=== PATIENT | female | born 1940 | race Caucasian/White ===

== ENCOUNTER 2020-05-15 14:00 | Inpatient (IN) | payer MEDICARE ==
[2020-05-15] MEDS ORDERED: SODIUM CHLORIDE 0.9% 1,000 ML IV STA (14:37)
--- NOTE | 2020-05-15 14:41 | ED ---
General Adult HPI - General Chief complaint: Shortness of Breath Stated complaint: high blood pressure Time Seen by Provider: 05/15/20 14:18 Source: patient, RN notes reviewed Mode of arrival: ambulatory Limitations: no limitations - History of Present Illness Initial comments: Patient is a pleasant 80-year-old female presenting to the emergency Department with complaints of high blood pressure. Patient states her blood pressure has been running high for the past few days, as high as 150 or 160 over mid 90s. Patient states otherwise she is feeling mostly well. No chest discomfort. No leg pain or leg swelling. Patient states at times when she exerts herself she gets fatigued. Patient states she may get a tiny bit short of breath however attributes that to her weight. Patient states her heart rate has also been running a little bit high at home, up to 100. No cough or fever. No abdominal pain or dysuria. - Related Data Home Medications Medication Instructions Recorded Confirmed Aspirin EC [Ecotrin Low Dose] 81 mg PO DAILY 05/15/20 05/15/20 Citalopram Hydrobromide 10 mg PO DAILY 05/15/20 05/15/20 [Citalopram HBr] Cyanocobalamin (Vitamin B-12) 1,000 mcg PO DAILY 05/15/20 05/15/20 [Vitamin B-12] Multivitamins, Thera [Multivitamin 1 tab PO DAILY 05/15/20 05/15/20 (formulary)] Omeprazole Magnesium [PriLOSEC OTC] 20 mg PO DAILY 05/15/20 05/15/20 Simvastatin [Zocor] 20 mg PO HS 05/15/20 05/15/20 amLODIPine [Norvasc] 2.5 mg PO DAILY 05/15/20 05/15/20 predniSONE 5 mg PO DIRECTED 05/15/20 05/15/20 traZODone HCL 50 mg PO HS 05/15/20 05/15/20 Allergies Allergy/AdvReac Type Severity Reaction Status Date / Time bacitracin Allergy Rash/Hives Verified 05/15/20 15:58 [From Neosporin ([id number])] lisinopril Allergy Unknown Verified 05/15/20 15:58 neomycin Allergy Rash/Hives Verified 05/15/20 15:58 [From Neosporin ([id number])] Penicillins Allergy Unknown Verified 05/15/20 15:58 polymyxin B Allergy Rash/Hives Verified 05/15/20 15:58 [From Neosporin ([id number])] adhesive AdvReac Itching Verified 05/15/20 15:58 Review of Systems ROS Statement: Those systems with pertinent positive or pertinent negative responses have been documented in the HPI. ROS Other: All systems not noted in ROS Statement are negative. Constitutional: Denies: fever, chills Eyes: Denies: eye pain ENT: Denies: ear pain Respiratory: Reports: as per HPI. Denies: cough Cardiovascular: Denies: chest pain Endocrine: Reports: fatigue Gastrointestinal: Denies: abdominal pain Genitourinary: Denies: dysuria Musculoskeletal: Denies: back pain Skin: Denies: rash Neurological: Denies: weakness Past Medical History Past Medical History: GERD/Reflux, Hyperlipidemia, Hypertension Additional Past Medical History / Comment(s): diverticultis History of Any Multi-Drug Resistant Organisms: None Reported Past Surgical History: Bowel Resection, Orthopedic Surgery Additional Past Surgical History / Comment(s): lt foot bunion Past Psychological History: Anxiety Smoking Status: Never smoker Past Drug Use History: None Reported General Exam Limitations: no limitations General appearance: alert, in no apparent distress Head exam: Present: normocephalic Eye exam: Present: normal appearance Neck exam: Present: normal inspection. Absent: tenderness, meningismus Respiratory exam: Present: normal lung sounds bilaterally Cardiovascular Exam: Present: tachycardia GI/Abdominal exam: Present: soft. Absent: tenderness Extremities exam: Present: normal inspection. Absent: pedal edema, calf tenderness Neurological exam: Present: alert Psychiatric exam: Present: normal affect, normal mood Skin exam: Present: normal color Course Vital Signs 05/15/20 05/15/20 05/15/20 14:09 15:19 15:30 Temperature 100.0 F H Pulse Rate 117 H 102 H Respiratory 22 18 Rate Blood Pressure 142/80 124/80 122/82 O2 Sat by Pulse 95 95 95 Oximetry 05/15/20 05/15/20 16:00 16:39 Temperature 98.3 F Pulse Rate 92 Respiratory 17 Rate Blood Pressure 133/79 O2 Sat by Pulse 94 L Oximetry EKG Findings - EKG Comments: EKG Findings:: Normal sinus rhythm 97. MA 154. QRS 80. QT 342. QTC 434. Normal axis. Normal QRS. No acute ST change. Medical Decision Making - Medical Decision Making Patient reevaluated and updated. Patient resting comfortably in bed. Heart rate and blood pressure stable. Case discussed with Dr. Larsen, who will admit covering for hospital call. - Lab Data Result diagrams: 05/15/20 14:42 05/15/20 14:42 Lab Results 05/15/20 05/15/20 05/15/20 Range/Units 14:42 14:42 14:42 WBC 9.0 (3.8-10.6) k/uL RBC 3.83 (3.80-5.40) m/uL Hgb 12.7 (11.4-16.0) gm/dL Hct 39.0 (34.0-46.0) % MCV 101.7 H (80.0-100.0) fL MCH 33.2 (25.0-35.0) pg MCHC 32.7 (31.0-37.0) g/dL RDW 13.7 (11.5-15.5) % Plt Count 230 (150-450) k/uL Neutrophils % 88 % Lymphocytes % 6 % Monocytes % 3 % Eosinophils % 1 % Basophils % 1 % Neutrophils # 8.0 H (1.3-7.7) k/uL Lymphocytes # 0.6 L (1.0-4.8) k/uL Monocytes # 0.3 (0-1.0) k/uL Eosinophils # 0.1 (0-0.7) k/uL Basophils # 0.1 (0-0.2) k/uL Macrocytosis Slight PT 9.4 (9.0-12.0) sec INR 0.9 (<1.2) APTT 20.5 L (22.0-30.0) sec D-Dimer 1.62 H (<0.60) mg/L FEU Sodium (137-145) mmol/L Potassium (3.5-5.1) mmol/L Chloride (98-107) mmol/L Carbon Dioxide (22-30) mmol/L Anion Gap mmol/L BUN (7-17) mg/dL Creatinine (0.52-1.04) mg/dL Est GFR (CKD-EPI)AfAm (>60 ml/min/1.73 sqM) Est GFR (CKD-EPI)NonAf (>60 ml/min/1.73 sqM) Glucose (74-99) mg/dL Plasma Lactic Acid Damian (0.7-2.0) mmol/L Calcium (8.4-10.2) mg/dL Total Bilirubin (0.2-1.3) mg/dL AST (14-36) U/L ALT (4-34) U/L Alkaline Phosphatase (38-126) U/L Troponin I (0.000-0.034) ng/mL Total Protein (6.3-8.2) g/dL Albumin (3.5-5.0) g/dL Urine Color Yellow Urine Appearance Clear (Clear) Urine pH 5.5 (5.0-8.0) Ur Specific [place] 1.012 (1.001-1.035) Urine Protein Trace H (Negative) Urine Glucose (UA) Negative (Negative) Urine Ketones Negative (Negative) Urine Blood Negative (Negative) Urine Nitrite Negative (Negative) Urine Bilirubin Negative (Negative) Urine Urobilinogen <2.0 (<2.0) mg/dL Ur Leukocyte Esterase Negative (Negative) 05/15/20 05/15/20 05/15/20 Range/Units 14:42 14:42 14:42 WBC (3.8-10.6) k/uL RBC (3.80-5.40) m/uL Hgb (11.4-16.0) gm/dL Hct (34.0-46.0) % MCV (80.0-100.0) fL MCH (25.0-35.0) pg MCHC (31.0-37.0) g/dL RDW (11.5-15.5) % Plt Count (150-450) k/uL Neutrophils % % Lymphocytes % % Monocytes % % Eosinophils % % Basophils % % Neutrophils # (1.3-7.7) k/uL Lymphocytes # (1.0-4.8) k/uL Monocytes # (0-1.0) k/uL Eosinophils # (0-0.7) k/uL Basophils # (0-0.2) k/uL Macrocytosis PT (9.0-12.0) sec INR (<1.2) APTT (22.0-30.0) sec D-Dimer (<0.60) mg/L FEU Sodium 135 L (137-145) mmol/L Potassium 4.2 (3.5-5.1) mmol/L Chloride 104 (98-107) mmol/L Carbon Dioxide 26 (22-30) mmol/L Anion Gap 5 mmol/L BUN 29 H (7-17) mg/dL Creatinine 1.09 H (0.52-1.04) mg/dL Est GFR (CKD-EPI)AfAm 56 (>60 ml/min/1.73 sqM) Est GFR (CKD-EPI)NonAf 49 (>60 ml/min/1.73 sqM) Glucose 114 H (74-99) mg/dL Plasma Lactic Acid Damian 1.0 (0.7-2.0) mmol/L Calcium 9.8 (8.4-10.2) mg/dL Total Bilirubin 0.5 (0.2-1.3) mg/dL AST 18 (14-36) U/L ALT 17 (4-34) U/L Alkaline Phosphatase 43 (38-126) U/L Troponin I <0.012 (0.000-0.034) ng/mL Total Protein 6.6 (6.3-8.2) g/dL Albumin 3.7 (3.5-5.0) g/dL Urine Color Urine Appearance (Clear) Urine pH (5.0-8.0) Ur Specific [place] (1.001-1.035) Urine Protein (Negative) Urine Glucose (UA) (Negative) Urine Ketones (Negative) Urine Blood (Negative) Urine Nitrite (Negative) Urine Bilirubin (Negative) Urine Urobilinogen (<2.0) mg/dL Ur Leukocyte Esterase (Negative) - Radiology Data Radiology results: report reviewed (As discussed with radiologist CT angios chest shows pulmonary embolism right lower lobe.), image reviewed (Chest x-ray shows no acute process) Critical Care Time Critical Care Time: Yes Total Critical Care Time: 33 Disposition Clinical Impression: Pulmonary embolism Disposition: ADMITTED IP TO THIS [facility] Condition: Serious Is patient prescribed a controlled substance at d/c from ED?: No Referrals: Nonstaff,Physician [Primary Care Provider] - 1-2 days Decision Time: 16:52
[2020-05-15] MEDS: ACETAMINOPHEN TAB 500 MG TAB PO STA ×2 (14:49→15:09)
[2020-05-15 15:05] LABS: Basophils # (A) 0.1 k/uL (0-0.2); Basophils % (A) 1 %; Eosinophils # (A) 0.1 k/uL (0-0.7); Eosinophils % (A) 1 %; HGB 12.7 gm/dL (11.4-16.0); Lymphocytes # (A) 0.6 k/uL (1.0-4.8); Lymphocytes % (A) 6 %; MCH 33.2 pg (25.0-35.0); MCHC 32.7 g/dL (31.0-37.0); MCV 101.7 fL (80.0-100.0); Macrocytosis Slight; Mean Platelet Volume 7.3; Monocytes # (A) 0.3 k/uL (0-1.0); Monocytes % (A) 3 %; Neutrophils % (A) 88 %; Platelet Count 230 k/uL (150-450); RBC 3.83 m/uL (3.80-5.40); RDW 13.7 % (11.5-15.5)
[2020-05-15 15:20] LABS: Albumin 3.7 g/dL (3.5-5.0); Calcium 9.8 mg/dL (8.4-10.2); Potassium 4.2 mmol/L (3.5-5.1); Total Bilirubin 0.5 mg/dL (0.2-1.3); Total Protein 6.6 g/dL (6.3-8.2)
--- NOTE | 2020-05-15 15:20 | XR ---
EXAMINATION TYPE: XR chest 2V DATE OF EXAM: 05/15/2020 CLINICAL HISTORY: Fever TECHNIQUE: Frontal and lateral views of the chest are obtained. COMPARISON: None FINDINGS: The cardiomediastinal silhouette is within normal limits for size. Pulmonary vasculature i s normal. There is linear atelectasis and/or scarring of the right lower lobe. There is no focal air space opacity, pleural effusion, or pneumothorax seen. Degenerative changes of the spine.. IMPRESSION: No acute cardiopulmonary process.
[2020-05-15 15:28] LABS: INR 0.9 (<1.2)
[2020-05-15 15:29] LABS: Prothrombin Time 9.4 sec (9.0-12.0)
[2020-05-15 15:34] LABS: D-Dimer 1.62 mg/L FEU (<0.60); Partial Thromboplastin Time 20.5 sec (22.0-30.0)
[2020-05-15 15:36] LABS: Appearance,Urine Clear (Clear); Bilirubin,Urine Negative (Negative); Blood,Urine Negative (Negative); Color,Urine Yellow; Glucose,Urine (UA) Negative (Negative); Ketones,Urine Negative (Negative); Leukocyte Esterase,Urine Negative (Negative); Nitrite,Urine Negative (Negative); PH, Urine 5.5 (5.0-8.0); Protein,Urine Trace (Negative); Specific Gravity,Urine 1.012 (1.001-1.035); Urobilinogen,Urine <2.0 mg/dL (<2.0)
--- NOTE | 2020-05-15 16:46 | CT ---
EXAMINATION TYPE: CT angio chest DATE OF EXAM: 05/15/2020 COMPARISON: This x-ray 05/15/2020 HISTORY: Shortness of breath and HTN. CT DLP: 275 mGycm Automated exposure control for dose reduction was used. CONTRAST: CTA scan of the thorax is performed with IV Contrast, patient injected with 60 mL of Isovue 370, pulm onary embolism protocol. MIP images are created and reviewed. 3D reconstructed images are created o n an independent workstation and reviewed. FINDINGS: LUNGS: The lungs are remarkable for interstitial changes, there are areas of interlobular septal pleu ral thickening, parenchymal bands, probable dependent atelectasis or scarring, there is mosaic perfus ion, there is no concerning parenchymal mass or nodule identified. There is no pleural effusion or pneumothorax seen. The tracheobronchial tree is patent. AORTA: No additional significant abnormality is seen. MEDIASTINUM: There is satisfactory enhancement of the pulmonary artery and its branches, there is pul monary embolism, segmental filling defect is present in the right lower lobe, axial image 86, there i s nonopacification of segmental branch right upper lobe, axial image 41 through 36e. There are no gr eater than 1 cm hilar or mediastinal lymph nodes. No pericardial effusion is seen. OTHER: Within the posterior right lobe liver towards the dome, axial image 118e there is a periphera l enhancing lesion present measuring approximately 2.7 cm, suggestion of feeding and possibly drainin g vessels. IMPRESSION: PULMONARY EMBOLISM. REPORT RELAYED TO DR. EWING TELEPHONICALLY AT THE TIME OF INTERPRETATION. INDETER MINATE LESION WITHIN THE LIVER COULD BE RELATED TO VASCULAR MALFORMATION BUT IS INDETERMINATE, ALTERN ATE IMAGING COULD BE PERFORMED FOR BETTER EVALUATION.
[2020-05-15] MEDS ORDERED: HEPARIN SODIUM,PORCINE 10,000 UNIT/ML 1 ML VIAL IV ONE (17:09)
[2020-05-15] MEDS ORDERED: HEPARIN SODIUM,PORCINE 5,000 UNIT/ML 1 ML VIAL IV PRN (17:09)
[2020-05-15] MEDS ORDERED: NALOXONE 0.4 MG/ML 1 ML VIAL IV PRN (17:09)
[2020-05-15] MEDS ORDERED: HEPARIN SOD,PORK IN 0.45% NACL 25,000 UNIT in 0.45% NACL 1 250ML.BAG IV SCH (17:15)
[2020-05-15] MEDS ORDERED: ACETAMINOPHEN TAB 325 MG TAB PO PRN (18:19)
--- NOTE | 2020-05-15 18:23 | P.HPIM ---
History of Present Illness H&P Date: 05/15/20 80-year-old female with PMH of ulcerative colitis, hypertension, dyslipidemia presents to the ED for BP check. Patient states that her blood pressure has been running high. States that her diastolic BP has been consistently in the 90s. As her PCP is in [place], she came to the ED for evaluation. On further questioning she reports shortness of breath with exertion but nothing out of the ordinary. She also noted her heart rate this morning was 129. She reports PE in the 70s that was treated with 6 months of Coumadin therapy. She denies any headache, lower extremity edema, nausea or vomiting, fever or chills, cough, chest pain, palpitations, changes in urination or bowel habits. No changes in appetite or weight. She denies any dizziness, numbness/weakness as tingling of the extremities. She does report that she drove from [place] on Wednesday. In the ED, her vital signs showed tachycardia with heart rate of 99 and O2 saturation of 93% on room air. CBC showed macrocytosis with MCV of 101.7. D- dimer was elevated at 1.62, CTA chest confirmed pulmonary embolus and indeterminate lesion within the liver. CMP showed sodium 135, BUN of 29, creatinine 1.09, glucose of 114. Troponin was less than 0.012, EKG showing normal sinus rhythm. Chest x-ray shows no active process. Patient is admitted for pulmonary embolus with pulmonology on consult. Review of Systems Pertinent positives and negatives as discussed in HPI, a complete review of systems was performed and all other systems are negative. Past Medical History Past Medical History: GERD/Reflux, Hyperlipidemia, Hypertension Additional Past Medical History / Comment(s): diverticultis History of Any Multi-Drug Resistant Organisms: None Reported Past Surgical History: Bowel Resection, Orthopedic Surgery Additional Past Surgical History / Comment(s): lt foot bunion Past Psychological History: Anxiety Smoking Status: Never smoker Past Drug Use History: None Reported Medications and Allergies Home Medications Medication Instructions Recorded Confirmed Type Aspirin EC [Ecotrin Low Dose] 81 mg PO DAILY 05/15/20 05/15/20 History Citalopram Hydrobromide 10 mg PO DAILY 05/15/20 05/15/20 History [Citalopram HBr] Cyanocobalamin (Vitamin B-12) 1,000 mcg PO DAILY 05/15/20 05/15/20 History [Vitamin B-12] Multivitamins, Thera [Multivitamin 1 tab PO DAILY 05/15/20 05/15/20 History (formulary)] Omeprazole Magnesium [PriLOSEC OTC] 20 mg PO DAILY 05/15/20 05/15/20 History Simvastatin [Zocor] 20 mg PO HS 05/15/20 05/15/20 History amLODIPine [Norvasc] 2.5 mg PO DAILY 05/15/20 05/15/20 History predniSONE 5 mg PO DIRECTED 05/15/20 05/15/20 History traZODone HCL 50 mg PO HS 05/15/20 05/15/20 History Allergies Allergy/AdvReac Type Severity Reaction Status Date / Time bacitracin Allergy Rash/Hives Verified 05/15/20 15:58 [From Neosporin ([id number])] lisinopril Allergy Unknown Verified 05/15/20 15:58 neomycin Allergy Rash/Hives Verified 05/15/20 15:58 [From Neosporin ([id number])] Penicillins Allergy Unknown Verified 05/15/20 15:58 polymyxin B Allergy Rash/Hives Verified 05/15/20 15:58 [From Neosporin ([id number])] adhesive AdvReac Itching Verified 05/15/20 15:58 Physical Exam Vitals: Vital Signs Temp Pulse Resp BP Pulse Ox 05/15/20 17:30 91 17 132/76 93 L 05/15/20 17:00 99 16 132/86 93 L 05/15/20 16:39 98.3 F 05/15/20 16:30 96 18 124/87 95 05/15/20 16:00 92 17 133/79 94 L 05/15/20 15:30 102 H 18 122/82 95 05/15/20 15:19 124/80 95 05/15/20 14:09 100.0 F H 117 H 22 142/80 95 Intake and Output 05/15/20 05/15/20 05/15/20 06:59 14:59 22:59 Other: Weight 74.843 kg General: [non toxic], [no distress], [appears at stated age] Derm: [warm], [dry] Head: [atraumatic], [normocephalic], [symmetric] Eyes: [EOMI], [no lid lag], [anicteric sclera] Mouth: [no lip lesion], [mucus membranes moist] Cardiovascular: [S1S2 reg], [tachycardic], [positive posterior tibial pulse bilateral], Lungs: [CTA bilateral], [no rhonchi, no rales] , [no accessory muscle use] Abdominal: [soft], [ nontender to palpation], [no guarding], [no appreciable organomegaly] Ext: [no gross muscle atrophy], [no edema], [no contractures] Neuro: [ CN II-XI grossly intact], [no focal neuro deficits] Psych: [Alert], [oriented], [appropriate affect] Results CBC & Chem 7: 05/15/20 14:42 05/15/20 14:42 Labs: Abnormal Lab Results - Last 24 Hours (Table) 05/15/20 05/15/20 05/15/20 Range/Units 14:42 14:42 14:42 MCV 101.7 H (80.0-100.0) fL Neutrophils # 8.0 H (1.3-7.7) k/uL Lymphocytes # 0.6 L (1.0-4.8) k/uL APTT 20.5 L (22.0-30.0) sec D-Dimer 1.62 H (<0.60) mg/L FEU Sodium (137-145) mmol/L BUN (7-17) mg/dL Creatinine (0.52-1.04) mg/dL Glucose (74-99) mg/dL Urine Protein Trace H (Negative) 05/15/20 Range/Units 14:42 MCV (80.0-100.0) fL Neutrophils # (1.3-7.7) k/uL Lymphocytes # (1.0-4.8) k/uL APTT (22.0-30.0) sec D-Dimer (<0.60) mg/L FEU Sodium 135 L (137-145) mmol/L BUN 29 H (7-17) mg/dL Creatinine 1.09 H (0.52-1.04) mg/dL Glucose 114 H (74-99) mg/dL Urine Protein (Negative) Assessment and Plan Assessment: Pulmonary embolus Acute kidney injury Macrocytosis Ulcerative colitis Hypertension Dyslipidemia As seen on CTA chest. Plans: Started on heparin drip. Transition to oral anticoagulant tomorrow. Telemetry monitoring. Follow pulmonology consultation. Follow echocardiogram to rule out right heart strain. Creatinine 1.09. Plans: Start normal saline at 75 mL per hour. Avoid nephrotoxins. Repeat BMP tomorrow morning. Plans: Continue B12 supplementation. Plans: Continue prednisone home dose. BP 132/76. Plans: Continue amlodipine. Monitor vitals, adjust medications if necessary. Plans: Continue simvastatin. DVT prophylaxis: [Heparin drip] Discussed with: [Patient] Anticipated discharge: [2-3 days] Anticipated discharge place: [Home] A total of [45] minutes was spent on the care of this complex patient more than 50% of the time was spent in counseling and care coordination. Patient names her daughter Sarah decision maker if she can't make decisions for herself. Patient would like to be no code. She would not like chest compressions or to be intubated at any time.
[2020-05-15] MEDS ORDERED: traZODone HCL 50 MG TAB PO SCH (21:00)
[2020-05-15] MEDS ORDERED: ATORVASTATIN 10 MG TAB PO SCH (21:00)
[2020-05-15] MEDS: FAMOTIDINE 20 MG TAB PO SCH (21:21)
[2020-05-15] MEDS: predniSONE 5 MG TAB PO SCH (21:22)
[2020-05-16] MEDS ORDERED: PANTOPRAZOLE 40 MG TABLET PO SCH (07:30)
[2020-05-16 08:24] LABS: INR 0.9 (<1.2); Prothrombin Time 9.6 sec (9.0-12.0)
[2020-05-16 08:43] LABS: Partial Thromboplastin Time 110.3 sec (22.0-30.0)
[2020-05-16 08:47] LABS: Basophils % (A) 0 %; Eosinophils # (A) 0.2 k/uL (0-0.7); Eosinophils % (A) 3 %; HCT 37.8 % (34.0-46.0); HGB 12.2 gm/dL (11.4-16.0); Lymphocytes # (A) 0.9 k/uL (1.0-4.8); Lymphocytes % (A) 14 %; MCH 33.7 pg (25.0-35.0); MCHC 32.4 g/dL (31.0-37.0); MCV 104.1 fL (80.0-100.0); Macrocytosis Slight; Mean Platelet Volume 7.1; Monocytes # (A) 0.2 k/uL (0-1.0); Monocytes % (A) 4 %; Neutrophils % (A) 78 %; Platelet Count 214 k/uL (150-450); RBC 3.63 m/uL (3.80-5.40); RDW 13.7 % (11.5-15.5); WBC 6.4 k/uL (3.8-10.6)
[2020-05-16] MEDS ORDERED: ASPIRIN 81 MG PO SCH (09:00)
[2020-05-16] MEDS ORDERED: amLODIPine 2.5 MG TAB PO SCH (09:00)
[2020-05-16] MEDS ORDERED: CITALOPRAM HYDROBROMIDE 10 MG TAB PO SCH (09:00)
[2020-05-16] MEDS ORDERED: CYANOCOBALAMIN 500 MCG TAB PO SCH (09:00)
[2020-05-16 09:09] LABS: Calcium 9.1 mg/dL (8.4-10.2)
[2020-05-16] MEDS: predniSONE 5 MG TAB PO SCH (09:33)
[2020-05-16] MEDS: FAMOTIDINE 20 MG TAB PO SCH (09:34)
--- NOTE | 2020-05-16 10:42 | ECHOF ---
Referral Reason:PE r/o heart strain MEASUREMENTS -------- HEIGHT: 162.6 cm WEIGHT: 77.1 kg BP: 125/69 RVIDd: 3.1 cm (< 3.3) IVSd: 1.3 cm (0.6 - 1.1) LVIDd: 3.7 cm (3.9 - 5.3) LVPWd: 1.2 cm (0.6 - 1.1) IVSs: 1.5 cm LVIDs: 2.5 cm LVPWs: 1.7 cm LA Diam: 3.2 cm (2.7 - 3.8) LAESV Index (A-L): 20.28 ml/m Ao Diam: 3.2 cm (2.0 - 3.7) AV Cusp: 1.9 cm (1.5 - 2.6) MV EXCURSION: 9.436 mm (> 18.000) MV EF SLOPE: 29 mm/s (70 - 150) EPSS: 0.7 cm MV E Gilbert: 0.67 m/s MV DecT: 163 ms MV A Gilbert: 0.82 m/s MV E/A Ratio: 0.82 RAP: 5.00 mmHg RVSP: 32.30 mmHg FINDINGS -------- Sinus rhythm. This was a technically adequate study. The left ventricular size is normal. There is mild concentric left ventricular hypertrophy. Overa ll left ventricular systolic function is normal with, an EF between 60 - 65 %. The right ventricle is normal in size. Normal LA size by volume 22+/-6 ml/m2. The right atrium is normal in size. Interatrial and interventricular septum intact. The aortic valve is trileaflet and appears structurally normal. There is trace mitral regurgitation. Trace tricuspid regurgitation present. Right ventricular systolic pressure is normal at < 35 mmHg. Trace/mild (physiologic) pulmonic regurgitation. The aortic root size is normal. Normal inferior vena cava with normal inspiratory collapse consistent with estimated right atrial pre ssure of 5 mmHg. There is no pericardial effusion. CONCLUSIONS -------- 1. The left ventricular size is normal. 2. There is mild concentric left ventricular hypertrophy. 3. Overall left ventricular systolic function is normal with, an EF between 60 - 65 %. 4. There is trace mitral regurgitation. 5. Trace tricuspid regurgitation present. 6. Trace/mild (physiologic) pulmonic regurgitation. 7. There is no pericardial effusion. ELECTROMEDICAL SERVICE ENGINEER: Luzma Spear RDCS
[2020-05-16 10:57] VITALS: TEMP 99.1
[2020-05-16] MEDS ORDERED: amLODIPine 2.5 MG TAB PO STA (12:19)
[2020-05-16] MEDS ORDERED: RIVAROXABAN 15 MG TAB PO SCH (12:30)
--- NOTE | 2020-05-16 13:25 | US ---
EXAMINATION TYPE: US venous doppler duplex LE BI DATE OF EXAM: 05/16/2020 1:13 PM COMPARISON: NONE CLINICAL HISTORY: PE. SIDE PERFORMED: Bilateral TECHNIQUE: The lower extremity deep venous system is examined utilizing real time linear array sonog mukul with graded compression, doppler sonography and color-flow sonography. VESSELS IMAGED: External Iliac Vein (EIV) Common Femoral Vein Deep Femoral Vein Greater Saphenous Vein * Femoral Vein Popliteal Vein Small Saphenous Vein * Proximal Calf Veins (* superficial vessels) Right Leg: Negative for DVT Left Leg: Negative for DVT IMPRESSION: 1. Bilateral lower extremity ultrasound negative for deep venous thrombosis.
[2020-05-16 14:31] VITALS: BP 167/89; PULSE 96; RESP 20
--- NOTE | 2020-05-16 14:38 | P.CNPUL ---
History of Present Illness Consult date: 05/16/20 Requesting physician: Lenard Ruiz Reason for consult: dyspnea Chief complaint: Dyspnea with exertion History of present illness: This is a 80-year-old female patient that resides in [place], and is currently in the area visiting her brother, has a past medical history of ulcerative colit is on maintenance dose of prednisone, hypertension, dyslipidemia, remote and vague history of pulmonary embolism in 1970s, lifetime nonsmoker who presented to the emergency department on 05/15/2020 with complaints of exertional dyspnea, and high blood pressure readings. Apparently her diastolic blood pressure was consistently in the 90s, and systolic blood pressure was 160. No chest pain. Apparently patient's heart rate was also tachycardic. Patient denied any hemoptysis, chest discomfort, no headache, no lower extremity edema, no fever, chills, no cough, no palpitations. Patient did drive from [place] on Wednesday. Chest x-ray in the emergency department showed no acute process. Labs showed elevated d-dimer 1.62, CTA chest showed pulmonary embolism segmental filling defect in the right lower lobe and non-opacification of subsegmental branch of right upper lobe. Patient was started on IV heparin, since been switched to Xarelto, she is calm and comfortable, she is on room air with pulse ox of 96%, hemodynamically stable, did have a couple of episodes of low-grade fever, T-max 100F, today's 99.1F, no cough or congestion. Review of Systems Respiratory: Reports dyspnea Past Medical History Past Medical History: GERD/Reflux, Hyperlipidemia, Hypertension Additional Past Medical History / Comment(s): diverticultis History of Any Multi-Drug Resistant Organisms: None Reported Past Surgical History: Bowel Resection, Orthopedic Surgery Additional Past Surgical History / Comment(s): lt foot bunion Past Anesthesia/Blood Transfusion Reactions: No Reported Reaction Past Psychological History: Anxiety Smoking Status: Never smoker Past Drug Use History: None Reported - Past Family History Father Family Medical History: Congestive Heart Failure (CHF), COPD Mother Additional Family Medical History / Comment(s): when she was 31 from unknown cause/illness. Sister(s) Family Medical History: Cancer, Coronary Artery Disease (CAD), CVA/TIA, Diabetes Mellitus Brother(s) Family Medical History: Congestive Heart Failure (CHF), Diabetes Mellitus Medications and Allergies Home Medications Medication Instructions Recorded Confirmed Type Aspirin EC [Ecotrin Low Dose] 81 mg PO DAILY 05/15/20 05/15/20 History Citalopram Hydrobromide 10 mg PO DAILY 05/15/20 05/15/20 History [Citalopram HBr] Cyanocobalamin (Vitamin B-12) 1,000 mcg PO DAILY 05/15/20 05/15/20 History [Vitamin B-12] Multivitamins, Thera [Multivitamin 1 tab PO DAILY 05/15/20 05/15/20 History (formulary)] Omeprazole Magnesium [PriLOSEC OTC] 20 mg PO DAILY 05/15/20 05/15/20 History Simvastatin [Zocor] 20 mg PO HS 05/15/20 05/15/20 History predniSONE 5 mg PO DIRECTED 05/15/20 05/15/20 History traZODone HCL 50 mg PO HS 05/15/20 05/15/20 History Rivaroxaban [Xarelto Starter Pack] 0 mg PO DIRECTED 30 Days #1 pack 05/16/20 Rx amLODIPine [Norvasc] 5 mg PO DAILY #30 tab 05/16/20 Rx Allergies Allergy/AdvReac Type Severity Reaction Status Date / Time bacitracin Allergy Rash/Hives Verified 05/15/20 15:58 [From Neosporin ([id number])] lisinopril Allergy Unknown Verified 05/15/20 15:58 neomycin Allergy Rash/Hives Verified 05/15/20 15:58 [From Neosporin ([id number])] Penicillins Allergy Unknown Verified 05/15/20 15:58 polymyxin B Allergy Rash/Hives Verified 05/15/20 15:58 [From Neosporin ([id number])] adhesive AdvReac Itching Verified 05/15/20 15:58 Physical Exam Vitals: Vital Signs Temp Pulse Pulse Resp BP BP Pulse Ox 05/16/20 08:00 99.1 F 94 18 138/68 96 05/16/20 04:00 92 16 125/69 93 L 05/16/20 00:00 101 H 16 134/79 95 05/15/20 20:00 98.6 F 74 16 147/76 94 L 05/15/20 18:22 98.7 F 89 16 156/91 95 05/15/20 17:30 91 17 132/76 93 L 05/15/20 17:00 99 16 132/86 93 L 05/15/20 16:39 98.3 F 05/15/20 16:30 96 18 124/87 95 05/15/20 16:00 92 17 133/79 94 L 05/15/20 15:30 102 H 18 122/82 95 05/15/20 15:19 124/80 95 Intake and Output 05/15/20 05/16/20 05/16/20 22:59 06:59 14:59 Intake Total 86.67 89.808 Balance 86.67 89.808 Intake: Intake, IV Titration 86.67 89.808 Amount Heparin Sod,Pork in 0.45% 86.67 89.808 NaCl 25,000 unit In 0.45 % NaCl 1 250ml.bag @ 18 UNITS/KG/HR 13.472 mls/hr IV .[id number] [facility] Rx#: [id number] Other: Voiding Method Toilet Toilet Toilet # Voids 1 1 1 Weight 74.843 kg 77.3 kg GENERAL EXAM: Alert, very pleasant, 80-year-old white female, on room air, and pulse ox 96% comfortable in no apparent distress. HEAD: Normocephalic/atraumatic. EYES: Normal reaction of pupils, equal size. Conjunctiva pink, sclera white. NOSE: Clear with pink turbinates. THROAT: No erythema or exudates. NECK: No masses, no JVD, no thyroid enlargement, no adenopathy. CHEST: No chest wall deformity. Symmetrical expansion. LUNGS: Equal air entry with no crackles, wheeze, rhonchi or dullness. CVS: Regular rate and rhythm, normal S1 and S2, no gallops, no murmurs, no rubs ABDOMEN: Soft, nontender. No hepatosplenomegaly, normal bowel sounds, no guarding or rigidity. EXTREMITIES: No clubbing, no edema, no cyanosis, 2+ pulses and upper and lower extremities. MUSCULOSKELETAL: Muscle strength and tone normal. SPINE: No scoliosis or deformity SKIN: No rashes CENTRAL NERVOUS SYSTEM: Alert and oriented -3. No focal deficits, tone is normal in all 4 extremities. PSYCHIATRIC: Alert and oriented -3. Appropriate affect. Intact judgment and insight. Results - Laboratory Findings CBC and BMP: 05/16/20 07:44 05/16/20 07:44 PT/INR, D-dimer PT 9.6 sec (9.0-12.0) 05/16/20 07:44 INR 0.9 (<1.2) 05/16/20 07:44 D-Dimer 1.62 mg/L FEU (<0.60) H 05/15/20 14:42 Abnormal lab findings: Abnormal Labs 05/15/20 05/15/20 05/15/20 14:42 14:42 14:42 RBC MCV 101.7 H Neutrophils # 8.0 H Lymphocytes # 0.6 L APTT 20.5 L D-Dimer 1.62 H Sodium BUN Creatinine Glucose Urine Protein Trace H 05/15/20 05/15/20 05/16/20 14:42 23:32 07:44 RBC 3.63 L MCV 104.1 H Neutrophils # Lymphocytes # 0.9 L APTT 149.6 H* D-Dimer Sodium 135 L BUN 29 H Creatinine 1.09 H Glucose 114 H Urine Protein 05/16/20 05/16/20 07:44 07:44 RBC MCV Neutrophils # Lymphocytes # APTT 110.3 H* D-Dimer Sodium BUN 25 H Creatinine Glucose 100 H Urine Protein - Diagnostic Findings Chest x-ray: report reviewed, image reviewed CT scan - chest: report reviewed, image reviewed Additional studies: Venous Dopplers are negative for DVT, echocardiogram reviewed, no evidence of right ventricular strain, no pulmonary hypertension Assessment and Plan Plan: Assessment: #1. Acute pulmonary embolism, with no evidence of breath ventricular strain. Troponin negative, echocardiogram showed no evidence of pulmonary hypertension, hemodynamically stable #2. Accelerated hypertension #3. Shortness of breath, chest discomfort related to acute pulmonary embolism #4. Hypertension #5. Hyperlipidemia #6. Previous history of pulmonary embolism in 1970 was previously on Coumadin #7. Ulcerative colitis on chronic dose of steroids #8. Anxiety #9. Lifetime nonsmoker #10. History of bowel resection Plan: Continue with oral anticoagulation, no evidence of RV strain on the echocardiogram or CTA chest. Hemodynamically stable, patient is on room air, echocardiogram results have been reviewed, patient is quite comfortable, breathing is comfortable, vital signs are stable. Doppler ultrasounds of lower extreme is were negative for DVT. Patient will likely need lifetime anticoagulation in view of recurrent pulmonary embolism. We'll continue to follow I performed a history & physical examination of the patient and discussed their management with my nurse practitioner, Cynthia Ortiz. I reviewed the nurse practitioner's note and agree with the documented findings and plan of care. Lung sounds are positive for clear breath sounds. The findings and the imp ression was discussed with the patient. I attest to the documentation by the nurse practitioner. Time with Patient: Greater than 30
--- NOTE | 2020-05-16 16:23 | P.DS ---
Providers Date of admission: 05/15/20 17:09 Expected date of discharge: 05/16/20 Attending physician: Lenard Ruiz MD Consults: 05/15/20 18:18 Consult Physician Routine Consulting Provider: Akbar Mabry Consult Reason/Comments: PE Do you want consulting provider notified?: Yes, Notify in am Primary care physician: Physician Nonstaff Hospital Course: 80-year-old female with PMH of ulcerative colitis, hypertension, dyslipidemia presents to the ED for BP check. Patient states that her blood pressure has been running high. States that her diastolic BP has been consistently in the 90s. As her PCP is in [place], she came to the ED for evaluation. On further questioning she reports shortness of breath with exertion but nothing out of the ordinary. She also noted her heart rate this morning was 129. She reports PE in the 70s that was treated with 6 months of Coumadin therapy. She denies any headache, lower extremity edema, nausea or vomiting, fever or chills, cough, chest pain, palpitations, changes in urination or bowel habits. No changes in appetite or weight. She denies any dizziness, numbness/weakness as tingling of the extremities. She does report that she drove from [place] on Wednesday. In the ED, her vital signs showed tachycardia with heart rate of 99 and O2 saturation of 93% on room air. CBC showed macrocytosis with MCV of 101.7. D- dimer was elevated at 1.62, CTA chest confirmed pulmonary embolus and indeterminate lesion within the liver. CMP showed sodium 135, BUN of 29, creatinine 1.09, glucose of 114. Troponin was less than 0.012, EKG showing normal sinus rhythm. Chest x-ray shows no active process. Patient is admitted for pulmonary embolus with pulmonology on consult.patient was started on heparin drip and transitioned to Xarelto for discharge. She remained hemodynamically stable. Echocardiogramshowed EF 60-65% with mild concentric LVH. Venous Doppler was negative for DVT. Patient was seen and examined. No acute events overnight. Patient denies any chest pain, shortness breath or palpitations. No nausea or vomiting. No fever or chills. General: [non toxic], [no distress], [appears at stated age] Derm: [warm], [dry] Head: [atraumatic], [normocephalic], [symmetric] Eyes: [EOMI], [no lid lag], [anicteric sclera] Mouth: [no lip lesion], [mucus membranes moist] Cardiovascular: [S1S2 reg], [tachycardic], [positive posterior tibial pulse bilateral], Lungs: [CTA bilateral], [no rhonchi, no rales] , [no accessory muscle use] Abdominal: [soft], [ nontender to palpation], [no guarding], [no appreciable organomegaly] Ext: [no gross muscle atrophy], [no edema], [no contractures] Neuro: [no focal neuro deficits] Psych: [Alert], [oriented], [appropriate affect] Pulmonary embolus Macrocytosis Ulcerative colitis Hypertension Dyslipidemia As seen on CTA chest. Echocardiogram as above. Plans: Continue Xarelto, advised to never miss doses. Telemetry monitoring. Follow pulmonology consultation. Plans: Continue B12 supplementation. Plans: Continue prednisone home dose. BP 168/89. Plans: Increase amlodipine from 2.5 to 5 mg by mouth daily. Monitor vitals, adjust medications if necessary. Plans: Continue simvastatin. [Patient admitted for PE. Hemodynamically stable. Plans will DC home today. Follow-up with PCP within 3 days of discharge. This complex discharge took 35 minutes to complete. Pertinent Studies: chest x-ray, chest CTA, venous Doppler, echocardiogram Patient Condition at Discharge: Stable Plan - Discharge Summary Discharge Rx Participant: No New Discharge Prescriptions: New amLODIPine [Norvasc] 5 mg PO DAILY #30 tab Rivaroxaban [Xarelto Starter Pack] 0 mg PO DIRECTED 30 Days #1 pack Continue traZODone HCL 50 mg PO HS Simvastatin [Zocor] 20 mg PO HS Citalopram Hydrobromide [Citalopram HBr] 10 mg PO DAILY predniSONE 5 mg PO DIRECTED Omeprazole Magnesium [PriLOSEC OTC] 20 mg PO DAILY Multivitamins, Thera [Multivitamin (formulary)] 1 tab PO DAILY Cyanocobalamin (Vitamin B-12) [Vitamin B-12] 1,000 mcg PO DAILY Aspirin EC [Ecotrin Low Dose] 81 mg PO DAILY Discontinued amLODIPine [Norvasc] 2.5 mg PO DAILY Discharge Medication List Aspirin EC [Ecotrin Low Dose] 81 mg PO DAILY 05/15/20 [History] Citalopram Hydrobromide [Citalopram HBr] 10 mg PO DAILY 05/15/20 [History] Cyanocobalamin (Vitamin B-12) [Vitamin B-12] 1,000 mcg PO DAILY 05/15/20 [History] Multivitamins, Thera [Multivitamin (formulary)] 1 tab PO DAILY 05/15/20 [History] Omeprazole Magnesium [PriLOSEC OTC] 20 mg PO DAILY 05/15/20 [History] Simvastatin [Zocor] 20 mg PO HS 05/15/20 [History] predniSONE 5 mg PO DIRECTED 05/15/20 [History] traZODone HCL 50 mg PO HS 05/15/20 [History] Rivaroxaban [Xarelto Starter Pack] 0 mg PO DIRECTED 30 Days #1 pack 05/16/20 [Rx] amLODIPine [Norvasc] 5 mg PO DAILY #30 tab 05/16/20 [Rx] Follow up Appointment(s)/Referral(s): Nonstaff,Physician [Primary Care Provider] - 1-2 days Patient Instructions/Handouts: Pulmonary Embolism (DC) Activity/Diet/Wound Care/Special Instructions: FU with your PCP within 3 days of DC. You will need a hypercoaguable workup with your PCP. Please make sure you are up todate on your cancer screening (colonoscopy, mammogram, PAP smear). Discharge Disposition: HOME SELF-CARE
[2020-05-17] MEDS ORDERED: amLODIPine 5 MG TAB PO SCH (09:00)
[2020-05-17] MEDS ORDERED: FAMOTIDINE 20 MG TAB PO SCH (09:00)
[2020-05-19] MEDS ORDERED: predniSONE 5 MG TAB PO SCH (09:00)
== END 2020-05-16 15:35 | disposition home or self-care (01) | DRG 176 ==
LOC: EC 14:00 → OBSVTOIN 17:09 → 3SCARD 17:09
PROVIDERS: ADMIT Family Medicine; ATTEND Family Medicine
DX: I26.99 Other pulmonary embolism without acute cor pulmonale (principal); N17.9 Acute kidney failure, unspecified; K51.90 Ulcerative colitis, unspecified, without complications; I10 Essential (primary) hypertension; F41.9 Anxiety disorder, unspecified; Z20.828 Contact with and (suspected) exposure to other viral communicable diseases; K21.9 Gastro-esophageal reflux disease without esophagitis; D75.89 Other specified diseases of blood and blood-forming organs; E78.5 Hyperlipidemia, unspecified; Z79.899 Other long term (current) drug therapy; Z79.82 Long term (current) use of aspirin; Z88.1 Allergy status to other antibiotic agents; Z88.0 Allergy status to penicillin; Z91.09 Other allergy status, other than to drugs and biological substances; Z90.49 Acquired absence of other specified parts of digestive tract; Z98.890 Other specified postprocedural states; Z82.49 Family history of ischemic heart disease and other diseases of the circulatory system; Z82.5 Family history of asthma and other chronic lower respiratory diseases; Z83.3 Family history of diabetes mellitus; Z86.711 Personal history of pulmonary embolism
CPT/HCPCS: 36415; 71046; 71275; 80048; 80053; 81003; 83605; 84484; 85025; 85379; 85610; 85730; 87040; 93005; 93306; 93970; 96361; 96375; 99291